=== PATIENT | female | born 1970 | race Caucasian/White ===

== ENCOUNTER 2018-02-13 08:38 | Emergency (ER) | payer BC ==
[2018-02-13] MEDS ORDERED: Aspirin 81 mg CHEW TAB* 81 MG TAB.CHEW PO ONE (08:53)
--- NOTE | 2018-02-13 09:13 | ED ---
HPI Chest Pain - HPI Summary HPI Summary: Patient is an otherwise healthy 47-year-old female presenting to the ED with chief complaint of feeling of heart palpitations which awoke her from sleep last night. She woke up later at 5 AM with a presentation of left arm numbness and tingling. She is extremely anxious on arrival and is tearful on examination. Patient denies any cardiac history and denies any family history of cardiac issues. She has never had anything like this before. She does have a history of an anxiety attack 2 years ago and states this feels somewhat similar, but had shortness of breath during that time and denied any shortness of breath during these episodes. She states she was alone last night as her was out of town. She denies any alcohol or smoking. Denies any abdominal pain. Denies fevers, sweats, chills. She states she has been feeling otherwise well. She denies any chest pain. Symptoms of heart fluttering and palpitations had ceased prior to arrival. - History of Current Complaint Chief Complaint: EDChestPainROMI Time Seen by Provider: 02/13/18 08:48 Hx Obtained From: Patient Onset/Duration: Started Hours Ago Time of Onset: 03:00 Timing: Lasting Minutes Initial Severity: Mild Current Severity: None Pain Intensity: 0 Pain Scale Used: 0-10 Numeric Chest Pain Radiates: No Character: Fluttering Aggravating Factor(s): Nothing Alleviating Factor(s): Spontaneous Resolution Associated Signs and Symptoms: Positive: Anxiety, Numbness, Tingling. Negative : Syncope, Fever, Chills, Lightheadedness, Diaphoresis, Nausea, Calf Pain/ Swelling, Bloody Sputum, Wheezing, URI - Risk Factors Pulmonary Embolism Risk Factors: Negative TAD Risk Factors: Negative - Allergy/Home Medications Allergies/Adverse Reactions: Allergies Allergy/AdvReac Type Severity Reaction Status Date / Time No Known Allergies Allergy Verified 05/01/16 17:46 Home Medications: Home Medications Sertraline* [Zoloft*] 50 mg PO DAILY 02/13/18 [History Confirmed 02/13/18] PMH/Surg Hx/FS Hx/Imm Hx Previously Healthy: Yes - Immunization History Hx Pertussis Vaccination: No Immunizations Up to Date: Unable to Obtain/Confirm Infectious Disease History: No Infectious Disease History: Denies: Traveled Outside the [place] in Last 30 Days - Social History Occupation: Employed Full-time Lives: With Family Alcohol Use: None Hx Substance Use: No Substance Use Type: Reports: None Smoking Status (MU): Never Smoked Tobacco Review of Systems Constitutional: Negative Negative: Fever, Chills, Fatigue, Skin Diaphoresis Eyes: Negative Positive: Palpitations. Negative: Chest Pain Negative: Shortness Of Breath, Cough Negative: Abdominal Pain, Vomiting, Diarrhea, Nausea Genitourinary: Negative Positive: no symptoms reported, see HPI Neurological: Negative Positive: Anxious All Other Systems Reviewed And Are Negative: Yes Physical Exam Triage Information Reviewed: Yes Vital Signs On Initial Exam: Initial Vitals Temp Pulse Resp BP Pulse Ox 99.1 F 66 16 133/74 100 02/13/18 08:43 02/13/18 08:43 02/13/18 08:43 02/13/18 08:43 02/13/18 08:43 Vital Signs Reviewed: Yes Appearance: Positive: Well-Appearing, Well-Nourished Skin: Positive: Warm, Skin Color Reflects Adequate Perfusion Head/Face: Positive: Normal Head/Face Inspection Eyes: Positive: EOMI, RHETT, Conjunctiva Clear Neck: Positive: Supple, No Lymphadenopathy Respiratory/Lung Sounds: Positive: Clear to Auscultation, Breath Sounds Present Cardiovascular: Positive: Normal, RRR, Pulses are Symmetrical in both Upper and Lower Extremities. Negative: Tachycardia, Leg Edema Left, Leg Edema Right Musculoskeletal: Positive: Normal, Strength/ROM Intact Neurological: Positive: Speech Normal Psychiatric: Positive: Normal, Affect/Mood Appropriate Diagnostics - Vital Signs Vital Signs Temp Pulse Resp BP Pulse Ox 02/13/18 08:43 99.1 F 66 16 133/74 100 - Laboratory Result Diagrams: 02/13/18 09:05 02/13/18 09:05 Lab Statement: Any lab studies that have been ordered have been reviewed, and results considered in the medical decision making process. Chest Pain Course/Dx - Course Course Of Treatment: During the course of treatment, the patient is evaluated for feelings of heart palpitations and fluttering. Denies any chest pain. Denies any recent travel or calf pain. Denies any OCP use. She states she was alone last evening for the first time, as did not stay with her since he is out of town. History of anxiety attack 2 years ago but states this feels somewhat different. Denies symptoms on arrival. She remains extremely anxious and is tearful. Labs obtained. Chest x-ray obtained. EKG obtained. Troponin. PERC score 0 criteria for further workup as no recent surgery, unilateral leg swelling, sat under 95%, heart rate over 100 or age over 50 according to wells criteria. D-dimer obtained which shows < 200. Both troponins 0.00. Chest x-ray shows no acute findings. EKG sinus bradycardia. I 've given her the results of her tests have discussed the multiple etiologies with chest pain. I have referred her to Dr. Estevez for further workup, but likely this is a manifestation of anxiety. There were no EKG changes on the cardiopulmonary monitor while in the ED. She is okay for discharge at this time. Since she was asymptomatic on arrival, she was not given oxygen or aspirin. - Chest Pain Differential Diagnosis/HQI/PQRI: Angina, Chest Wall, Pulmonary Embolism - Diagnoses Provider Diagnoses: Chest pain Discharge - Sign-Out/Discharge Documenting (check all that apply): Discharge/Admit/Transfer - Discharge Plan Condition: Stable Disposition: HOME Patient Education Materials: Angina (ED) Referrals: Deepti Estevez MD [Medical Doctor] - Lupe Fisher MD [Primary Care Provider] - Additional Instructions: Please follow-up with Dr. Estevez For any worsening symptoms, return to the ED immediately - Billing Disposition and Condition Condition: STABLE Disposition: HOME
[2018-02-13 09:26] LABS: ABS Basophils 0 10^3/ul (0-0.2); ABS Eosinophils 0 10^3/ul (0-0.6); ABS Lymphocytes 2.5 10^3/ul (1.0-4.8); ABS Monocytes 0.7 10^3/ul (0-0.8); ABS Neutrophils 6.3 10^3/ul (1.5-7.7); ABS Nucleated RBC 0 10^3/ul; Eosinophil % 0.4 % (0-6); Hematocrit 37 % (35-47); Hemoglobin 12.7 g/dl (12.0-16.0); Lymphocyte % 25.7 % (25-47); Mean Corpuscular HGB Conc 34 g/dl (31-36); Mean Corpuscular Hemoglobin 31 pg (27-31); Mean Corpuscular Volume 91 fL (80-97); Mean Platelet Volume 8.1 um3 (7.4-10.4); Nucleated Red Blood Cells % 0; Platelet Count 243 10^3/ul (150-450); Red Blood Count 4.09 10^6/ul (4.0-5.4); Red Cell Distribution Width 13 % (10.5-15); White Blood Count 9.6 10^3/ul (3.5-10.8)
[2018-02-13 09:34] LABS: INR 0.86 (0.77-1.02)
[2018-02-13 09:37] LABS: EGFR Non-African American 67.1 (>60)
--- NOTE | 2018-02-13 09:48 | RAD ---
INDICATION: Chest pain. COMPARISON: Comparison is made with prior chest x-ray study from May 01, 2016. TECHNIQUE: Dual-energy PA and lateral views of the chest were obtained. FINDINGS: The heart is within normal limits in size. Mediastinal and hilar contours appear within normal limits. The lungs are hyperinflated and clear. No pleural effusion or pneumothorax is seen. IMPRESSION: NO EVIDENCE FOR ACTIVE CARDIOPULMONARY DISEASE.
--- OUTSIDE RECORDS SUMMARY | 2018-02-13 10:32 | XMS REPORT ---
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 Family History Date Family Member(s) Problem(s) Comments General blood clots protein S def Siblings 3 Social History Type Date Description Comments Marital Status Lives With Occupation [employer] Status Currently Working ETOH Use Occasionally consumes alcohol Smoking Patient has never smoked Recreational Drug Use Denies Drug Use Daily Caffeine Consumes on average 3 cups of regular coffee per day Exercise Type/Frequency Exercises sporadically Allergies, Adverse Reactions, Alerts Date Description Reaction Status Severity Comments 01/23/2018 NKDA active Medications Medication Date Status Form Strength Qnty SIG Indications Ordering Provider Sertraline HCL 00 Active Tablets 50mg 1 by Unknown 00 mouth every day Vital Signs Date Vital Result Comment 01/24/2018 Height 67 inches 5'7" Weight 165.00 lb BP Systolic Sitting 120 mmHg BP Diastolic Sitting 80 mmHg Pain Level 7 BMI (Body Mass Index) 25.8 kg/m2 Results Description No Information Procedures Description No Information Encounters Type Date Location Provider CPT E/M Dx Office Visit 01/24/2018 Neurosurgery Services Elvis Espinosa M.D. [id number] M51.26 10:30a Of [facility] Plan of Care 01/24/2018 - Elvis Espinosa M.D.M51.26 Other intervertebral disc displacement, lumbar regionFollow up:Refer to Dr. Moreno for LESI L4-5 Left F/U with me after above
[2018-02-13 10:59] LABS: Urine Appearance Clear; Urine Blood Negative (Negative); Urine Color Yellow; Urine Ketones Negative (Negative); Urine Protein Negative (Negative); Urine Specific Gravity 1.008 (1.010-1.030); Urine Urobilinogen Negative (Negative)
[2018-02-13 11:29] VITALS: BP 125/71
== END 2018-02-13 11:51 | disposition home or self-care (01) ==
LOC: ED 08:38
DX: R07.9 Chest pain, unspecified (principal)
CPT/HCPCS: 36415; 71046; 80053; 81003; 81015; 82550; 82553; 83605; 83735; 83874; 83880; 84484; 84702; 85025; 85379; 85610; 85730; 87086; 93005; 99282; A9270-GY